=== PATIENT | male | born 1970 | race Caucasian/White ===

== ENCOUNTER → 2017-01-22 | Outpatient (CLI) | payer BC ==
--- NOTE | 2017-01-22 12:20 | P.STRESS ---
- Stress Test Note Stress Test Results/Findings: Exam Performed: stress test Exam Date: 01/22/17 Height: 5 ft 6 in Weight: 73.936 kg Protocol: leslie Stage: 4 Duration of Exercise: 10:31 Resting Heart Rate: 81 Resting Blood Pressure: 140/92 Maximum Achieved Heart Rate: 170 Maximum Achieved Blood Pressure: 191/77 85% PMHR: 148 100% PMHR: 174 METS: 12.1 Technologist Comment: Stress Test Results/Findings: This 47-year-old gentleman was referred for stress test because of palpitations. He has history of smoking and hypertension. EKG at rest showed normal sinus rhythm. X-rays EKGs did not reveal any changes to sized ischemia. Final impression: #1. Negative stress test #2. Patient did not express any chest pain. #3. Patient's exercise capacity is good.
== END | disposition home or self-care (01) ==
LOC: RADNMMAIN 10:22
PROVIDERS: ATTEND Family Medicine
DX: R00.2 Palpitations (principal)
CPT/HCPCS: 93017